=== PATIENT | male | born 1935 | race Caucasian/White ===

== ENCOUNTER 2017-10-16 10:42 | Observation (INO) | payer MEDICARE ==
[~2017-10-16] VITALS: Ht 172.7 cm; Wt 69.5 kg
[~2017-10-16 10:42] MED LIST: ARICEPT10 MG PO; BAYER CHEWABLE81 MG PO; CARBIDOPA-LEVO1 EA10 PO; COREG12.5 MG PO; DIGOXIN125 MCG PO; FLUOXETINE HCL10 M1 PO; LISINOPRIL10 MG PO; MEMANTINE HCL10 MG PO
--- NOTE | 2017-10-16 16:45 | NUR ---
PATIENT ADMIT FROM ED . TO FLOOR VIA STRETCHER. PATIENT WAS TRANSFER TO HOSPITAL BED WITH 4PERS ASSIST. V/S TAKING AND WNL. HANSON IN PLACE AND DRAINING WELL. SKIN INTACT. PATIENT HAD SLURRED SPEECH. LUNGS SOUND CLEAR AND DIM IN THE BASES. PATIENT WAS PUT ON 0.5L OF 02 VIA NC DUE TO LOW 02 SATURATION. POSITIVE BOWEL TONES. TELEMETRY IN PLACE. IV SITES PATENT AND FLUID STARTED. PATIENT IS ALERT BUT NOT ORIENTED. BED ALARM ON. WILL CONTINUE TO MONITOR.
--- NOTE | 2017-10-16 17:40 | NUR ---
PATIENT RESTING IN BED QUIETLY. NO APPARENT DISTRESS. BED ALARM ON
--- NOTE | 2017-10-16 18:35 | NUR ---
PATIENT HAD A FAIR AFTERNOON. ALERT BUT NOT ORIENTED. SLURRED SPEECH.BASELINE DEMENTIA.HANSON IN PLACE, IV SITES PATENT AND FLUID INFUSING AT 100ML/HR. PATIENT ATE 100% OF MEAL. SOFT GENERAL DIET. BED ALARM ON.
--- NOTE | 2017-10-16 19:00 | NUR ---
RECEIVED REPORT FROM RN. PATIENT IS RESTING IN BED, BREATHING IS EVEN AND UNLABORED. FLACC SCORE OF 0. CALL LIGHT WITHIN REACH, BED ALARM ON.
--- NOTE | 2017-10-16 19:05 | NUR ---
PATIENT IS RESTING IN BED. PATIENT IS CONFUSED AT BASELINE. PATIENTS BED ALARM IS ON FOR SAFETY. CALL LIGHT IN REACH.
--- NOTE | 2017-10-16 19:05 | NUR ---
ROUNDED CHARGE. PATIENT IS RESTING IN BED. PATIENT DENIES ANY NEEDS AT THIS TIME. CALL LIGHT IN REACH.
--- NOTE | 2017-10-16 20:19 | NUR ---
REPOSITIONED PATIENT FOR COMFORT. NOW RESTING COMFORTABLY IN BED, BREATHING IS EVEN AND UNLABORED. UNABLE TO ASSESS FOR NEEDS DUE TO GARBLED SPEECH. FLACC SCORE OF 0. CALL LIGHT WITHIN REACH, BED ALARM ON.
--- NOTE | 2017-10-16 22:10 | NUR ---
PATIENT PULLED HANSON CATHETER OUT AND PULLED IV FROM RIGHT ARM OUT DUE TO CONFUSION/AGITATION. WITH 3PA, PATIENT WAS CHANGED DUE TO INCONTINENT BM. NEW COUDE CATHETER INSERTION WITH ASSISTANCE FROM NESTOR BANERJEE AND DALTON SALINAS. NOW RESTING IN BED, BREATHING IS EVEN AND UNLABORED. COUDE IS DRAINING WELL. SIDE RAILS UP, BED ALARM ON. WILL MONITOR CLOSELY. CALL LIGHT WITHIN REACH, PATIENT WITHIN VIEW OF RN.
--- NOTE | 2017-10-16 22:30 | NUR ---
PATIENT AWAKE AND ATTEMPTING TO GET OUT OF BED. RN AT BEDSIDE TO KEEP PATIENT IN BED AND SAFE. NOW RESTING AGAIN. WILL MONITOR CLOSELY. SIDE RAILS UP, BED ALARM ON. WITHIN VIEW OF RN.
--- NOTE | 2017-10-16 23:26 | NUR ---
PATIENT ATTEMPTING TO GET OUT OF BED. UNABLE TO ASSESS FOR NEEDS. WARM BLANKET PROVIDED. PATIENT NOW SMILING AND RESTING COMFORTABLY WITH EYES CLOSED. CALL LIGHT WITHIN REACH, BED ALARM ON, WITHIN VIEW OF RN.
--- NOTE | 2017-10-17 00:19 | NUR ---
PATIENT CONTINUES TO ATTEMPT TO GET OUT OF BED, UNABLE TO STATE HIS NEEDS. PROVIDED WARM BLANKET, NOW RESTING WITH EYES CLOSED. WILL CONTINUE TO MONITOR CLOSELY. CALL LIGHT WITHIN REACH, BED ALARM ON, WITHIN VIEW OF RN.
--- NOTE | 2017-10-17 01:10 | NUR ---
PATIENT ATTEMPTING TO GET OUT OF BED. REPOSITIONED FOR COMFORT. FLUSHED CATHETER, FLUSHED EASILY. VITALS TAKEN. PATIENT UNABLE TO EXPRESS NEEDS. OFFERED WATER. CALL LIGHT WITHIN REACH, BED ALARM ON. WITHIN VIEW OF RN.
--- NOTE | 2017-10-17 02:02 | NUR ---
PATIENT RESTING IN BED, FIDGITING WITH BLANKETS AND IV TUBING. PATIENT UNABLE TO EXPRESS NEEDS. OFFERED WATER, PATIENT PUSHED WATER CUP AWAY. NOW RESTING IN BED, EYES REMAIN OPEN. CALL LIGHT WITHIN REACH, BED ALARM ON, WITHIN VIEW OF RN.
--- NOTE | 2017-10-17 03:09 | NUR ---
PATIENT FIDGITING WITH IV TUBING AND AND BLANKETS. PROVIDED WARM BLANKET, PATIENT NOW RESTING IN BED. BED ALARM ON, CALL LIGHT WITHIN REACH, WITHIN VIEW OF RN.
--- NOTE | 2017-10-17 04:26 | NUR ---
PATIENT HAS BEEN SLEEPING OFF AND ON THROUGHOUT SHIFT. VSS, URINE OUTPUT QS, NO APPARENT SIGNS OF PAIN OR DISCOMFORT. SPEECH IS GARBLED, UNABLE TO ASSESS ORIENTATION, PATIENT DOES NOT FOLLOW COMMANDS. REMAINS IN TELE, RHYTHM IS IRREGULAR. LUNG SOUNDS ARE DIM, O2 SATURATING WELL ON ROOM AIR. INCONTINENT OF STOOL. PATIENT PULLED HANSON CATHETER IN PLACE AT BEGINNING OF SHIFT WITH URETHRAL TRAUMA. NEW COUDE CATHETER PLACED PER ORDER FROM DR. VILLALPANDO. SKIN UNREMARKABLE. HAS IV FLUIDS INFUSING THROUGH IV IN RIGHT ARM, REMAINED IN BED FOR SAFETY THIS SHIFT. NO ACUTE CHANGES FROM BEGINNING OF SHIFT.
--- NOTE | 2017-10-17 04:29 | NUR ---
PATIENT FIDGITING WITH BLANKETS. FLACC SCORE OF 0. OFFERED WATER, PATIENT PUSHES CUP AWAY. PATIENT IS UNABLE TO EXPRESS NEEDS. CALL LIGHT WITHIN REACH, BED ALARM ON, WITHIN VIEW WAREHOUSE PICKER.
--- NOTE | 2017-10-17 06:41 | NUR ---
PATIENT RESTING COMFORTABLY IN BED, BREATHING IS EVEN AND UNLABORED. ATTENDS CHANGED, VITALS AND ASSESSMENT DONE. CALL LIGHT WITHIN REACH, BED ALARM ON.
--- NOTE | 2017-10-17 07:27 | EKG ---
[facility] [address] [place] [address] Signed Atrial fibrillation Low voltage QRS Abnormal ECG When compared with ECG of 07-APR-2016 19:52, No significant change was found Confirmed by TERRY VILLALPANDO MD ([id number]) on 10/17/2017 7:26:45 AM Electronically Signed By: TERRY VILLALPANDO MD 10/17/17 0727 PATIENT NAME: CHRISTINA CARTWRIGHT Electrocardiogram DATE OF : 31 PHYSICIAN: TERRY VILLALPANDO MD REPORT #: [id number] REPORT IS CONFIDENTIAL AND NOT TO BE RELEASED WITHOUT AUTHORIZATION
--- NOTE | 2017-10-17 07:32 | NUR ---
RECIEVED BEDSIDE REPORT FROM CHRISS FOUNTAIN. PT SLEEPING, BREATHING EVEN AND UNLABORED. IV FLUIDS AT 100ML/HR. ON ROOM AIR, HANSON DRAINING CLEAR YELLOW URINE. BED PADS IN PLACE.
--- NOTE | 2017-10-17 09:38 | NUR ---
PT AWAKE IN BED. GAVE WASHCLOTH TO WASH FACE. TOOK TO BATHROOM. PT WILL CALL WHEN READY
--- NOTE | 2017-10-17 10:49 | NUR ---
TRANSFERED PT TO CHAIR WITH PHYSICAL THERAPY. PT WAS UNABLE TO COOPERATE. VERY HEAVY ASSIT WITH 4 PEOPLE. PT INCONT OF STOOL, LOUIS-CARE COMPLETED AND ATTEND CHANGED. HANSON IN PLACE AND DRAINING YELLOW URINE. GOWN CHANGED. TAB ALARM ON.
[2017-10-17] MEDS ORDERED: ASCORBIC ACID500 M3 PO (12:25)
[2017-10-17] MEDS ORDERED: SEROQUEL25 MG PO (12:25)
[2017-10-17] MEDS ORDERED: IRON325 M1 PO (12:26)
[2017-10-17] MEDS ORDERED: TYLENOL325 MG PO (12:36)
[2017-10-17] MEDS ORDERED: MILK OF MA400 MG/5 M PO (12:37)
[2017-10-17] MEDS ORDERED: GUAIFENESIN DM S5 ML PO (12:39)
[2017-10-17] MEDS ORDERED: LOPERAMIDE2 MG PO (12:39)
--- NOTE | 2017-10-17 12:40 | NUR ---
Medications reconciled using facility [facility]
--- NOTE | 2017-10-17 15:42 | NUR ---
TRANSFERED PT TO BED WITH 2 RN AND SCHOOL YEAR NANNY. PREFORMED LOUIS-CARE AND CHANGED ATTEND. LOUIS AREA HAD THICK, STICKY, GRAINY STOOL. PT WAS TUCKED INTO BED WITH WARM BLANKETS. PT RESTING QUIETLY.
--- NOTE | 2017-10-17 19:00 | NUR ---
SHIFT REPORT RECEIVED. PATIENT RESTING IN BED EATING PUDDING. HE IS ALERT AND SMILING. CALL LIGHT IN REACH. IN EASY VIEW OF NURSES STATION.
--- NOTE | 2017-10-17 19:51 | NUR ---
PATIENT'S BEDDING CHANGED. SLEEVE PUT OVER ARM WITH IV TO PROTECT PATIENT FROM PULLING ON IT. NO LOUIS CARE REQUIRED AT THIS TIME. CALL LIGHT IN REACH.
--- NOTE | 2017-10-17 21:30 | NUR ---
EVENING MEDS GIVEN WITH APPLE SAUCE, PATIENT TOLERATED WELL AND FED HIMSELF THE REMAINDER OF THE APPLE SAUCE. HE IS SMILING AND APPEARS COMFORTABLE. BRAD HOFFMAN ASSISTED IN REPOSITIONING PATINET AND ASSESSING TOILETING NEEDS. PATIENT LUNGS ARE DIM BUT CLEAR. ABD IS SOFT AND HE DOES NOT SHOW SIGNS OF DISCOMFORT WITH PALPATION. NO EDEMA NOTED. SKIN APPEARS INTACT. HANSON DRAINING CLEAR YELLOW URINE. IV FLUIDS INFUSING PER ORDER, SITE WNL.
--- NOTE | 2017-10-17 23:00 | NUR ---
PATIENT WAS MOVING TOWARD THE END OF THE BEDAND LOOKING OUT THE DOOR AT THE NURSES STATION. WHEN RN ENTERED THE ROOM THE PATIENT WAS SMILING AND CLAPPING. HOWEVER RN WAS UNABLE TO DETERMINE WHAT HE WAS WANTING. ASSESSED TOILETING NEEDS AND OFFERED WATER, PATIENT DECLINED. SECOND RN ASSISTED WITH REPOSITIONING THE PATIENT BACK INTO CORRECT POSITION ON THE BED. PATIENT IS MOVING HIS BLANKETS AROUND BUT APPEARS COMFORTABLE. BED ALARM ON.
--- NOTE | 2017-10-18 00:59 | NUR ---
SPOKE WITH DR VILLALPANDO ABOUT DC THE HANSON FOR THIS PATIENT. HE IS CURRENTLY SLEEPING, WHICH HE HAS NOT BEEN DOING MUCH OF TONIGHT. THEREFORE, WE WILL WAIT UNTIL HE IS AWAKE AGAIN TO FOLLOW THROUGH ON THESE ORDERS.
--- NOTE | 2017-10-18 04:58 | NUR ---
PATIENT CONTINUES TO SLEEP SOUNDLY. RN DC CATHETER PER ORDERS. PATIENT TOLERATED WELL, HE MOVED SLIGHTLY BUT CONTINUES TO REST WITH HIS EYES CLOSED. NO APPARENT INJURY OR BLOOD NOTED.
--- NOTE | 2017-10-18 05:15 | NUR ---
PATIENT SLEPT MOST OF THE NIGHT. HE APPEARS HAPPY WHILE AWAKE, IS UNABLE TO COMMUNICATE WELL. TELE #5, HR 50-60'S. CATHETER REMOVED AT 0450. INCONTINENT AT BASELINE. APPETITE IMPROVING, ABLE TO FEED HIMSELF IF SET UP APPROPRIATELY. GROUND MEALS AND NECTAR THICK FLUIDS. IV FLUIDS INFUSING PER ORDER; IV SITE WNL AND COVERED WITH NETTING TO KEEP PATIENT FROM PULLING AT IT.
--- NOTE | 2017-10-18 06:12 | NUR ---
PATIENT'S ATTENDS CHANGED. NO URINE. SMALL BM. CLEANED VERY WELL WITH ASSIST FROM LAB SUPPORT SERVICE TECH. BARRIER CREAM APPLIED. SKIN APPEARS INTACT. PATIENT TRANSFERED UP TO RECLINER. WATER PROVIDED. PATIENT APPEARS COMFORTABLE. CHAIR ALARM ON.
--- NOTE | 2017-10-18 07:18 | NUR ---
RECIEVED BEDSIDE REPORT FROM CHRISS PATEL. PT SLEEPING IN CHAIR, APPEARS COMFORTABLE, BREATHING EVEN AND UNLABORED. HANSON D/C AT 0450, DUE TO VOID BY [id number]. IV FLUIDS RUNNING AT 50ML/HR.
--- NOTE | 2017-10-18 08:20 | NUR ---
PT IN CHAIR AWAKE. WET WASH CLOTH. COMED HAIR.
[2017-10-18] MEDS ORDERED: CARBIDOPA-LEVO1 EA10 PO (10:08)
--- NOTE | 2017-10-18 10:30 | NUR ---
VITALS AND I AND O DONE
--- NOTE | 2017-10-18 12:13 | NUR ---
PT DISCHARGED TO [facility]. CHERRI FROM [facility] ARRIVED WITH CLEAN CLOTHES. RESIDENT WAS CHANGED AND DRESSED. IV REMOVED. UPDATE AND DISCHARGE PAPERS GIVEN TO CHERRI FROM [facility]. PHONE REPORT GIVEN TO ALVERTO PEREZ WELL. RX GIVEN TO CHERRI.
--- NOTE | 2017-10-18 12:51 | NUR ---
PT SITTING IN CHAIR, EATING BREAKFAST. HE SEEMED VERY INTENT ON HIS MEAL, AND DID NOT RESPOND TO MY VOICE. 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 HE APPARENTLY SELDOM RESPONDS. WILL FOLLOW NEEDED-GOD BLESS HIM
== END 2017-10-18 12:10 | disposition home or self-care (01) ==
LOC: ED 10:42 → MS 10:44
PROVIDERS: ADMIT Internal Medicine
DX: G93.41 Metabolic encephalopathy (principal); E86.0 Dehydration; I10 Essential (primary) hypertension; F32.9 Major depressive disorder, single episode, unspecified; D64.9 Anemia, unspecified; G30.9 Alzheimer's disease, unspecified; F02.80 Dementia in other diseases classified elsewhere, unspecified severity, without behavioral disturbance, psychotic disturbance, mood disturbance, and anxiety; G20 Parkinson's disease; R53.1 Weakness; Z91.81 History of falling; Z87.891 Personal history of nicotine dependence; Z66 Do not resuscitate; Z79.82 Long term (current) use of aspirin; Z79.899 Other long term (current) drug therapy
CPT/HCPCS: 36415; 51702; 70450; 71045; 80048; 80053; 81001; 82607; 83540; 83605; 83880; 84439; 84443; 84466; 84484; 85025; 85610; 85730; 87040; 93005; 93010; 94762; 97116; 97163; 97530; 99285; G0378

== ENCOUNTER 2017-12-07 12:27 | Emergency (ER) | payer MEDICARE ==
[~2017-12-07] VITALS: Ht 172.7 cm; Wt 69.5 kg
[~2017-12-07 12:27] MED LIST changes: +ASCORBIC ACID500 M3 PO; +GUAIFENESIN DM S5 ML PO; +IRON325 M1 PO; +LOPERAMIDE2 MG PO; +MILK OF MA400 MG/5 M PO; +SEROQUEL25 MG PO; +TYLENOL325 MG PO
== END 2017-12-07 18:10 | disposition home or self-care (01) ==
LOC: ED 12:27
DX: M97.02XA Periprosthetic fracture around internal prosthetic left hip joint, initial encounter (principal); I10 Essential (primary) hypertension; F32.9 Major depressive disorder, single episode, unspecified; Z79.899 Other long term (current) drug therapy; Z79.82 Long term (current) use of aspirin; W18.30XA Fall on same level, unspecified, initial encounter
CPT/HCPCS: 72100; 73502; 73552; 80048; 85025; 99282